=== PATIENT | male | born 1995 | race Asian ===

== ENCOUNTER 2021-05-29 14:41 | Emergency (ER) | payer OTHER ==
[~2021-05-29] VITALS: Ht 170.2 cm; Wt 68.1 kg
[~2021-05-29 14:41] MED LIST: CEPH500C PO
[2021-05-29] MEDS ORDERED: ONDANSETRON 4MG/2ML VIAL IV ONE (15:25)
[2021-05-29] MEDS ORDERED: NS 1,000 ML IV ONE ×2 (15:25→16:40)
[2021-05-29 16:02] LABS: BASO % 0.3 % (0.0-1.0); EOS % 0.1 % (0.0-3.0); HEMATOCRIT 57.5 % (42.0-52.0); LYMPH # 0.4 10^3/uL (1.5-5.0); LYMPH % 2.8 % (24.0-44.0); MEAN CORPUSCULAR HEMOGLOBIN 31.3 pg (27.0-33.0); MEAN CORPUSCULAR HGB CONC 34.8 g/dl (32.0-36.5); MONO # 0.6 10^3/uL (0.0-0.8); MONO % 4.7 % (2.0-8.0); NEUTROPHILS # 11.6 10^3/uL (1.5-8.5); NEUTROPHILS % 91.4 % (36.0-66.0); PLATELET COUNT, AUTOMATED 266 10^3/uL (150-450); WHITE BLOOD COUNT 12.7 10^3/uL (4.0-10.0)
[2021-05-29 16:06] LABS: RED BLOOD COUNT 6.39 10^6/uL (4.30-6.10)
[2021-05-29 16:29] LABS: CALCIUM LEVEL 9.8 MG/DL (8.5-10.1); CREATININE FOR GFR 1.73 MG/DL (0.70-1.30); GLOMERULAR FILTRATION RATE 51.5 (>60); POTASSIUM SERUM 4.7 MEQ/L (3.5-5.1)
[2021-05-29 16:30] LABS: ALBUMIN 4.6 GM/DL (3.2-5.2); BILIRUBIN,DIRECT 0.2 MG/DL (0.0-0.2); BILIRUBIN,TOTAL 0.8 MG/DL (0.2-1.0); TOTAL PROTEIN 8.4 GM/DL (6.4-8.2)
[2021-05-29] MEDS ORDERED: ACETAMINOPHEN 500 MG TAB PO ONE (17:35)
[2021-05-29 19:27] VITALS: BP 111/58
[2021-05-29] MEDS ORDERED: ONDA4TAB6 PO (20:11)
[2021-05-29] MEDS ORDERED: ONDANSETRON 4MG ORAL DISINTEGRATING TAB PO ONE (20:45)
== END 2021-05-29 20:48 | disposition home or self-care (01) ==
LOC: M ED 14:41
DX: A08.11 Acute gastroenteropathy due to Norwalk agent (principal); E86.0 Dehydration; N17.9 Acute kidney failure, unspecified; F17.290 Nicotine dependence, other tobacco product, uncomplicated
CPT/HCPCS: 80047; 80048; 80076; 83690; 85025; 87505; 96361; 96374; 99284; J2405